=== PATIENT | male | born 1955 | race Caucasian/White ===

== ENCOUNTER 2017-01-03 09:20 | Inpatient (IN) | payer OTHER ==
[~2017-01-03] VITALS: Ht 180.3 cm; Wt 76.1 kg
[~2017-01-03 09:20] MED LIST: ACAMPROSATE CA333 MG PO; ASPIRIN EC325 MG PO; DESYREL100 MG PO; GABAPENTIN400 MG PO; NAPROXEN500 MG PO; NEURONTIN400 MG PO; PANTOPRAZOLE SO40 MG PO; RANITIDINE HCL300 MG PO; SERTRALINE HCL100 MG PO; ZOLOFT50 MG PO
[2017-01-03 10:26] LABS: HEMATOCRIT 45.3 % (38.0-50.0); MCH 29.6 PG (29.0-34.0); MCHC 34.2 G/DL (30.0-36.0); MCV 86.6 FL (86-99); MEAN PLAT.VOLUME 9.6 uM^3 (9.0-12.4); PLATELET COUNT 308 K/uL (156-360); RBC DIS.WIDTH-SD 44.7 % (39-53); RED BLOOD COUNT 5.23 M/uL (4.00-5.50); WHITE BLOOD COUNT 9.7 K/uL (4.1-10.2)
[2017-01-03 10:43] LABS: CHLORIDE 101 mEq/L (99-109); POTASSIUM 3.7 mEq/L (3.7-5.4); SODIUM 141 mEq/L (136-147)
[2017-01-03 10:45] LABS: GLUCOSE 84 mg/dL (70-99)
[2017-01-03 10:46] LABS: ANION GAP 19 MEQ/L (2-14)
[2017-01-03 10:47] LABS: TOTAL BILIRUBIN 1.4 mg/dL (0.0-1.0)
[2017-01-03 10:48] LABS: SERUM ETHYL ALCOHOL 70 mg/dL
[2017-01-03 10:49] LABS: ALKALINE PHOSPHATASE 68 IU/L (3-129); GFR ESTIMATE (CALCULATED) > 59 mL/min/
[2017-01-03 10:50] LABS: UREA NITROGEN (BUN) 15 mg/dL (9-23)
[2017-01-03 11:56] LABS: ADD MIUA? YES; BILIRUBIN NEGATIVE; BLOOD SMALL; COLOR YELLOW ((YELLOW)); GLUCOSE (STRIP) NEGATIVE; KETONES 20; LEUKOCYTES TRACE; NITRITE NEGATIVE; PROTEIN (STRIP) 100; SPECIFIC GRAVITY 1.024 (1.000-1.030); UROBILINOGEN 0.2 MG/DL (0.2-1.0)
[2017-01-03 12:05] LABS: BACTERIA NONE SEEN /HPF; EPITHELIAL CELLS RARE /HPF; GRANULAR CASTS 0-5 /LPF; MUCUS 1+ /LPF; UCUL ADDED? NO; UNCLASSIFIED CASTS 0-5 /LPF
[2017-01-03 12:07] LABS: ADD MEDTOX COMMENT Y; AMPHETAMINE NEGATIVE (500 ng/mL); BARBITURATES NEGATIVE (200 ng/mL); BENZODIAZEPINES PRESUMPTIVE POSITIVE (150 ng/mL); COCAINE NEGATIVE (150 ng/mL); INTERNAL CONTROLS VALID? YES; METHADONE NEGATIVE (200 ng/mL); METHAMPHETAMINE NEGATIVE (500 ng/mL); OPIATES (MORPHINE) NEGATIVE (100 ng/mL); OXYCODONE NEGATIVE (100 ng/mL); PHENCYCLIDINE NEGATIVE (25 ng/mL); PROPOXYPHENE NEGATIVE (300 ng/mL); THC CANNABINOIDS NEGATIVE (50 ng/mL); TRICYCLIC ANTIDEPRESSANTS NEGATIVE (300 ng/mL)
[2017-01-03 12:41] LABS: BENZODIAZEPINES, URINE SCREEN POSITIVE (200 ng/mL)
[2017-01-03] MEDS ORDERED: MOTRIN800 MG PO (16:55)
[2017-01-03] MEDS ORDERED: NEURONTIN300 MG PO (16:57)
[2017-01-03] MEDS ORDERED: ZOLOFT100 MG PO (16:58)
[2017-01-03] MEDS ORDERED: DESYREL 150 MG150 MG PO (17:00)
[2017-01-03] MEDS ORDERED: PROTONIX40 MG PO (17:01)
[2017-01-03 18:33] VITALS: BP 154/78
[2017-01-03 18:35] VITALS: BP 154/78
[2017-01-04 07:42] VITALS: BP 124/58
[2017-01-04 11:58] VITALS: BP 139/65
[2017-01-04 15:19] VITALS: BP 138/76
[2017-01-05 07:30] VITALS: BP 133/70
[2017-01-05 10:48] VITALS: BP 144/73
[2017-01-05 15:31] VITALS: BP 140/73
[2017-01-06 08:12] VITALS: BP 140/66
[2017-01-06 15:27] VITALS: BP 123/69
[2017-01-07 07:27] VITALS: BP 113/60
[2017-01-07 15:24] VITALS: BP 118/61
[2017-01-08 07:51] VITALS: BP 115/55
[2017-01-08 16:14] VITALS: BP 128/66
[2017-01-09 07:32] VITALS: BP 111/53
[2017-01-09 15:19] VITALS: BP 116/56
[2017-01-10 07:58] VITALS: BP 109/59
[2017-01-10] MEDS ORDERED: LIPITOR20 MG PO (09:17)
[2017-01-10] MEDS ORDERED: ZOLOFT100 MG PO (09:17)
== END 2017-01-10 14:57 | disposition home or self-care (01) | DRG 885 ==
LOC: EME → EDBD 09:20 → EME 09:20 → 1WEST 15:05 → EDOF 15:05 → 1WEST 18:22
PROVIDERS: Emergency Medicine
DX: F33.2 Major depressive disorder, recurrent severe without psychotic features (principal); R45.851 Suicidal ideations; F10.24 Alcohol dependence with alcohol-induced mood disorder; F10.239 Alcohol dependence with withdrawal, unspecified; F41.9 Anxiety disorder, unspecified; K21.9 Gastro-esophageal reflux disease without esophagitis; M54.5 Low back pain; Z59.0 Homelessness; Z87.891 Personal history of nicotine dependence; Z91.5 Personal history of self-harm; Z91.14 Patient's other noncompliance with medication regimen
CPT/HCPCS: 80053; 81003; 84999; 85027; 87045; 87046; 87086; 87506; 90839; 97150 GO; 97166 GO; 99281; 99285; G0480; J2060; J7030; Q0177